=== PATIENT | female | born 1950 | race Asian ===

== ENCOUNTER 2019-01-06 12:15 | Day surgery (SDC) | payer OTHER, BC ==
[2019-01-06] MEDS ORDERED: PROPOFOL 20 ML (14:36)
[2019-01-06] MEDS ORDERED: LIDOCAINE 2% (SDV) 5 ML INJ (14:36)
[2019-01-06] MEDS ORDERED: MIDAZOLAM 1 MG/ML 2 ML INJ (14:36)
[2019-01-06] MEDS ORDERED: FENTAnyl 50 MCG/ML VIAL (14:36)
== END 2019-01-06 15:46 | disposition home or self-care (01) ==
LOC: GIL 12:15
DX: Z12.11 Encounter for screening for malignant neoplasm of colon (principal); K64.8 Other hemorrhoids; E03.9 Hypothyroidism, unspecified; I10 Essential (primary) hypertension; E78.5 Hyperlipidemia, unspecified
CPT/HCPCS: 45378